=== PATIENT | female | born 1985 | race Caucasian/White ===

== ENCOUNTER → 2016-12-29 | Outpatient (CLI) | payer OTHER ==
--- NOTE | 2016-12-29 15:20 | US ---
EXAMINATION TYPE: US thyroid st tissue head/neck DATE OF EXAM: 12/29/2016 10:14 AM COMPARISON: 12/23 Ultrasound, also had priors at other hospitals CLINICAL HISTORY: E04.2 Multinodular goiter,E03.9 Hypothyroidism. weight gain, on thyroid medication GLAND SIZE: Right Lobe: 4.1 x 1.3 x 1.4 cm Overall Parenchyma: homogenous Left Lobe: 4.7 x 1.3 x 1.4 cm Overall Parenchyma: homogeneous Isthmus Thickness: 0.3 cm NODULES RIGHT: # of nodules measured on right: 1 1. 0.7 X 0.4 x 0.4 cm heterogeneous solid nodule at the anterior lower pole with well-defined debbie ns. This nodule is wider than tall and shows peripheral vascularity. Prior size: 0.6cm LEFT: # of nodules measured on left: 3 1. 0.5 X 0.3 x 0.5 cm hypoechoic solid nodule at the mid pole with well-defined margins. This nodu le is wider than tall and shows peripheral vascularity. Prior size: not seen on previous 2. 0.7 X 0.5 x 0.5 cm hypoechoic solid nodule at the lower pole with well-defined margins. This nod ule is wider than tall and shows peripheral vascularity. Prior size: 0.6 cm 3. Small 0.3cm solid nodule at the anterior mid pole with well-defined margins. This nodule is wider than tall and shows no intranodular vascularity. Prior size: not seen on previous ISTHMUS: # of nodules measured in the isthmus: 1 1. 0.4 X 0.2 x 0.3 cm hypoechoic cystic nodule at the lower isthmus with well-defined margins. Thi s nodule is wider than tall and shows no intranodular vascularity. Prior size: no seen on prior Bilateral neck scanned, no evidence of lymphadenopathy. IMPRESSION: 1. Multiple bilateral subcentimeter nodules. Correlate for multinodular goiter
== END | disposition home or self-care (01) ==
LOC: RADUSWWP 09:44
PROVIDERS: ATTEND Family Medicine
DX: E04.2 Nontoxic multinodular goiter (principal); E03.9 Hypothyroidism, unspecified
CPT/HCPCS: 76536